=== PATIENT | female | born 1975 | race Caucasian/White ===

== ENCOUNTER 2018-03-17 13:30 | Emergency (ER) | payer BC ==
--- OUTSIDE RECORDS SUMMARY | 2018-03-17 15:26 | XMS REPORT ---
:1975 External Reference #:[id number] Author Organization [facility] Address [address], [address] [place] [address] Phone [phone] Care Team Providers Name Role Phone Thomas Dias DO Primary Care Physician Unavailable Payers Type Date Identification Numbers Payment Provider Subscriber Commercial Policy Number: [id number] [employer] PayID: [id number] [address] [address] [place] [address] Problems Date Description Provider Status Onset: 10/02/2014 Microscopic hematuria Nilda Rao [facility] Active Onset: 10/02/2014 Non-toxic multinodular goiter Nilda Rao [facility] Active Onset: 09/26/2015 Hypothyroidism Nilda Rao [facility] Active Note: primary Onset: 10/02/2014 Vitamin D deficiency Nilda Rao [facility] Active Onset: 04/07/2015 Essential hypertension Nilda Rao [facility] Active Family History Date Family Member(s) Problem(s) Comments Father CAD Mitral valve dx Mother Breast Lumps benign Social History Type Date Description Comments Lives With Family Diet Patient follows no dietary restrictions 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 Proair HFA 11/28 Active Aerosol 108(90Bas 8.500 1-2 466.0 Faye, /2014 e) gm inhalations Kirsten mcg/Act every 4 , M.D. hours as needed Levothyroxine 10/02 Active Tablets 100mcg 90tab 1 by mouth Faye Sodium /2014 s every day Winnie Curtis Desloratadine Active Tablets 5mg 1 tab by Unknown /0000 mouth every day as needed congestion Xyzal Active Tablets 5mg 1 tab by Unknown /0000 mouth every day as needed allergies Amoxicillin/Clavul 06/13 Hx Tablets 875-125mg 14tab 1 tabl by maximo Sutherland Potassium s mouth twice Nilda, - a day DO 09/09 Augmentin 01/13 Hx Tablets 875-125mg 14tab 1 tab by Nhan, /2015 s mouth MD Nunu - q12hrs for 01/29 7 Chloraseptic Max 01/12 Hx Lozenges 15-10mg 30uni 1 tab by Nhan, Sore Throat /2015 ts mouth every MD Nunu - 4 hours as 01/29 needed Mucinex Fast-Max 01/12 Hx Tablets 5-325-200 30tab 1 tab by Nhan Cold & Sinus /2015 mg s mouth twice MD Nunu - a day as 01/29 needed for cough/conge stion Hydrochlorothiazid 04/21 Hx Tablets 25mg 30tab 1 by mouth I10 Nhan e /2014 s every day MD Roge Eddy 06/30 Augmentin 04/17 Hx Tablets 875-125mg 14tab 1 tab by H66.92 Nhan, /2014 s mouth MD Nunu - q12hrs for 09/25 7 Amlodipine 04/02 Hx Tablets 5mg 30tab 1 by mouth I10 Nhan Besylate s every day MD Roge Eddy 04/21 Flovent HFA 01/30 Hx Aerosol 110mcg/Ac inhale two t puffs by - mouth twice 05/27 a day as needed Nabumetone 01/24 Hx Tablets 750mg 30tab take 2 729.5 Arun, s tablets by Thomas Reddy - mouth every DO 01/12 day with /2015 food for ankle/leg discomfort Keflex 01/24 Hx Capsules 500mg 30cap 1 cap (or 729.5 Arun s tab) by Thomas Reddy, - mouth three DO 02/03 times a day /2014 Vitamin D2 01/23 Hx Tablets 2000Unit 2 by mouth Arun every day Thomas Reddy, - DO 01/23 Omeprazole 01/02 Hx Capsules 20mg 100ca 1 by mouth 530[address] metz every day Thomas Reddy, - DO 01/23 Montelukast Sodium 12/16 Hx Tablets 10mg 90tab 1 by mouth Arun s every day Thomas Reddy, - DO 02/03 Cheratussin ac 12/16 Hx Syrup 100-10mg/ 8oz 1-2 Arun 5ML teaspoons Thomas Reddy, - by mouth DO 01/01 every hour as needed cough Azithromycin 12/03 Hx Tablets 250mg 11tab 2 tabs by Arun s mouth today Thomas Reddy, - then one DO 12/16 tab by mouth daily Prednisone 11/28 Hx Tablets 20mg 10tab 2 tabs by 466.0 Faye s mouth every - day with Winnie 12/16 /2014 Keflex 11/23 Hx Capsules 500mg 30cap 1 cap (or Faye s tab) by Kirsten - zi dalton M.D. 12/16 times a day /2014 Desloratadine 11/20 Hx Tablets 5mg 30tab 1 tab by 465.9 Faye s mouth every Kirsten - day as , MLindaDLinda 01/01 needed congestion Ergocalciferol 10/03 Hx Capsules [id number] 4caps take 1 Faye capsule by Kirsten mclean MD 01/01 week /2014 Levothyroxine 00 Hx Tablets 25mcg every day Unknown Sodium /0000 - 11/01 Vitamin D3 0000 Hx Tablets 4000Unit 1 by mouth Unknown /0000 every day - 06/30 Immunizations CPT Code Status Date Vaccine Lot # [id number] Given 02/29/2012 Tdap injection Vital Signs Date Vital Result Comment 06/30/2016 BP Systolic Sitting Right Arm 166 mmHg BP Diastolic Sitting Right Arm 104 mmHg Height 70 inches 5'10" Weight 187.25 lb BMI (Body Mass Index) 26.9 kg/m2 BSA (Body Surface Area) 2.03 m2 01/30/2016 BP Systolic Sitting Right Arm 156 mmHg BP Diastolic Sitting Right Arm 90 mmHg Height 70 inches 5'10" Weight 185.50 lb BMI (Body Mass Index) 26.6 kg/m2 BSA (Body Surface Area) 2.02 m2 01/13/2016 BP Systolic Sitting Right Arm 138 mmHg BP Diastolic Sitting Right Arm 76 mmHg Body Temperature 97.3 F Height 70 inches 5'10" Weight 181.38 lb BMI (Body Mass Index) 26.0 kg/m2 BSA (Body Surface Area) 2.00 m2 04/02/2015 BP Systolic 172 mmHg BP Diastolic 84 mmHg Heart Rate 73 /min Height 70 inches 5'10" Weight 179.00 lb BMI (Body Mass Index) 25.7 kg/m2 BSA (Body Surface Area) 1.99 m2 O2 % BldC Oximetry 99 % Ra 01/24/2015 BP Systolic 142 mmHg BP Diastolic 82 mmHg Body Temperature 97.0 F Height 70 inches 5'10" Weight 178.00 lb BMI (Body Mass Index) 25.5 kg/m2 BSA (Body Surface Area) 1.99 m2 01/02/2015 BP Systolic 152 mmHg BP Diastolic 80 mmHg Body Temperature 97.2 F Height 70 inches 5'10" Weight 182.00 lb BMI (Body Mass Index) 26.1 kg/m2 BSA (Body Surface Area) 2.01 m2 11/28/2014 Heart Rate 71 /min Weight 181.00 lb 11/20/2014 BP Systolic Sitting Left Arm 136 mmHg BP Diastolic Sitting Left Arm 74 mmHg Body Temperature 100.1 F Height 70 inches 5'10" Weight 180.00 lb BMI (Body Mass Index) 25.8 kg/m2 BSA (Body Surface Area) 2.00 m2 10/02/2014 BP Systolic Sitting Left Arm 130 mmHg BP Diastolic Sitting Left Arm 72 mmHg Height 70 inches 5'10" Weight 173.00 lb BMI (Body Mass Index) 24.8 kg/m2 BSA (Body Surface Area) 1.96 m2 01/25/2014 BP Systolic 138 mmHg BP Diastolic 86 mmHg Body Temperature 98.3 F Weight 179.00 lb 06/07/2013 BP Systolic 118 mmHg BP Diastolic 66 mmHg Body Temperature 99.0 F Height 70 inches 5'10" Weight 170.00 lb 03/26/2013 BP Systolic 122 mmHg BP Diastolic 62 mmHg Height 70 inches 5'10" Weight 167.00 lb 08/14/2012 BP Systolic 122 mmHg BP Diastolic 68 mmHg Body Temperature 98.8 F Height 70 inches 5'10" Weight 178.00 lb 03/01/2012 BP Systolic 138 mmHg BP Diastolic 90 mmHg Weight 180.00 lb 03/01/2012 Body Temperature 98.0 F 12/23/2011 BP Systolic 138 mmHg BP Diastolic 82 mmHg Body Temperature 98.7 F Weight 179.00 lb 08/17/2011 BP Systolic 118 mmHg BP Diastolic 72 mmHg Body Temperature 98.5 F Height 70 inches 5'10" Weight 181.00 lb 07/27/2011 BP Systolic 126 mmHg BP Diastolic 74 mmHg Body Temperature 98.4 F Height 70 inches 5'10" Weight 179.00 lb 03/04/2011 BP Systolic 128 mmHg BP Diastolic 88 mmHg Height 70 inches 5'10" Weight 183.00 lb 06/02/2010 Height 69 inches 5'9" Weight 180.00 lb Results Test Date Test Result H/L Range Note Laboratory test finding 01/13/2016 Throat Strep See Note 1 Screen Laboratory test finding 01/03/2015 Vitamin 28.0 ng/mL Low 30.0-100.0 2 D,25-Hydroxy Laboratory test finding 01/03/2015 Thyroid Stim 1.25 uIU/mL 0.36-3.74 Hormone CBC/Manual Differential 12/03/2014 White Blood Count 13.6 K/uL High 3.1- 10.7 Red Blood Count 4.37 M/uL 3.90-5.40 Hemoglobin 13.1 gm/dL 11.6-15.8 Hematocrit 37.1 % 36.0-46.1 Mean Cell Volume 84.9 fl 80.9-99.0 Mean Corpuscular HGB 30.0 pg 25.9-32.7 Mean Corpuscular HGB Conc 35.3 g/dL High 30.8-34.3 Platelet Count 295 K/uL 155-360 Red Cell Distri Width %CV 12.6 % 11.7-14.4 Mean Platelet Volume 10.3 fL 8.9-12.4 Total Cells Counted 100 #CELLS Neutrophils% 67 % 33-73 Lymph% 24 % 17-56 Platelet Estimate NORMAL Monocyte% 8 % 0-10 Eosinophil% 1 % 0-5 RBC Morphology NORMAL LDL Cholesterol Profile 10/02/2014 Cholesterol 168 mg/dL < 200 3 HDL Cholesterol 50 mg/dL > 40 4 LDL-Cholesterol 106 mg/dL < 100 5 Triglycerides 61 mg/dL < 150 6 Laboratory test finding 10/02/2014 Bas% 0.5 % 0.0-1.1 Baso # 0.03 K/uL 0.0-0.1 Eo% 0.8 % 0.0-6.6 Eos # 0.05 K/uL 0.0-0.5 Hematocrit 39.5 % 36.0-46.1 Hemoglobin 13.8 gm/dL 11.6-15.8 Lymph # 1.68 K/uL Low 1.8-7.0 Lymph % 28.1 % 17.0-46.1 Mean Cell Volume 84.0 fl 80.9-99.0 Mean Corpuscular HGB 29.4 pg 25.9-32.7 Mean Corpuscular HGB Conc 34.9 g/dL High 30.8-34.3 Mean Platelet Volume 11.1 fL 8.9-12.4 [place] # 0.71 K/uL 0.3-0.9 [place] % 11.9 % 4.3-13.2 Neut# 3.50 K/uL 1.0-7.0 Neut% 58.7 % 40.4-72.8 Platelet Count 226 K/uL 155-360 Red Blood Count 4.70 M/uL 3.90-5.40 Red Cell Distri Width %CV 12.5 % 11.7-14.4 Red Cell Distri Width SD 37.7 fl 3-47 Vitamin D,25-Hydroxy 19.0 ng/mL Low 30.0-100.0 7 White Blood Count 6.0 K/uL 3.1-10.7 Laboratory test finding 09/13/2014 Thyroid Stim Hormone 1.23 uIU/mL 0.36- 3.74 Laboratory test finding 01/25/2014 Urine Culture See Note 8 Laboratory test finding 08/30/2013 Thyroid Stim Hormone 1.18 uIU/mL 0.49- 4.67 Laboratory test finding 03/27/2013 Free T4 0.97 ng/mL 0.61-1.24 TSH (Thyroid Stimulating Horm) 0.51 miu/mL 0.34-5.60 Lipid Profile (Trig/Chol/HDL) 03/27/2013 Cholesterol 148 mg/dL Less than 200 Cholesterol/HDL Ratio 3.5 Average 1-4.44 HDL Cholesterol 42 mg/dL 40-60 9 LDL Cholesterol 95.2 Less Than 100 10 Triglycerides 54 mg/dL 40-200 Vitamin D, 25 Hydroxy 03/27/2013 25-Hydroxy Vitamin D Total 18 ng/mL 11 25-Hydroxy Vitamin D2 <4.0 ng/mL 25-Hydroxy Vitamin D3 18 ng/mL Laboratory test finding 08/14/2012 Free T4 0.82 ng/mL 0.61-1.24 TSH (Thyroid Stimulating Horm) 1.02 miu/mL 0.34-5.60 LDL Cholesterol Profile 01/07/2012 Cholesterol 159 mg/dL 120-200 HDL Cholesterol 42 mg/dL 29-83 LDL-Cholesterol 94 mg/dL 62-185 Triglycerides 113 mg/dL 16-231 Throat-Beta Strept 12/23/2011 M <See Note> 12 Laboratory test finding 07/27/2011 Free T4 1.08 ng/dL 0.71-1.85 Thyroid Stim Hormone 1.52 uIU/mL 0.49-4.67 Vitamin D,1,25 Dihydroxy 47.8 pg/mL 10.0-75.0 13 CBS W/Automated Diff 07/27/2011 Bas% 0.6 % 0.0-1.1 Baso # 0.03 K/uL 0.0-0.1 Eo% 1.3 % 0.0-6.6 Eos # 0.07 K/uL 0.0-0.5 Hematocrit 36.9 % 36.0-46.1 Hemoglobin 12.9 gm/dL 11.6-15.8 Lymph # 1.61 K/uL 0.8-3.4 Lymph % 29.8 % 17.0-46.1 Mean Cell Volume 83.7 fl 80.9-99.0 Mean Corpuscular HGB 29.3 pg 25.9-32.7 Mean Corpuscular HGB Conc 35.0 g/dL High 30.8-34.3 Mean Platelet Volume 11.2 fL 8.9-12.4 [place] # 0.54 K/uL 0.3-0.9 [place] % 10.0 % 4.3-13.2 Neut# 3.15 K/uL 1.0-7.0 Neut% 58.3 % 40.4-72.8 Platelet Count 252 K/uL 155-360 Red Blood Count 4.41 M/uL 3.90-5.40 Red Cell Distri Width %CV 12.6 % 11.7-14.4 Red Cell Distri Width SD 37.8 fl 3-47 White Blood Count 5.4 K/uL 3.1-10.7 1 NO BETA STREPTOCOCCI ISOLATED 2 Vitamin D deficiency has been defined by the [place] of Medicine and an Endocrine Society practice guideline as a level of serum 25-OH vitamin D less than 20 ng/mL (1,2). The Endocrine Society went on to further define vitamin D insufficiency as a level between 21 and 29 ng/mL (2). 1. IOM ([place] of Medicine). 2010. Dietary reference intakes for calcium and D. Street [place]: The National Academies Press. 2. Loco MF, Rafael NC, Nery SHELTON, et al. Evaluation, treatment, and prevention of vitamin D deficiency: an Endocrine Society clinical practice guideline. JCEM. 2010; 96(7):1911-30. Performed at: RN - [facility] [address] [id number] Occupational Health Physiotherapist: Yeimi Goss MD, Phone: [phone] Reference Guidelines*: Desirable: ........... < 200 mg/dL Borderline High: ..... 200-239 mg/dL High: ................ >=240 mg/dL * The National Cholesterol Education Program (NCEP) 4 Reference Guidelines*: Low HDL: ..... < 40 mg/dL Normal: ..... 40-60 mg/dL Desirable: ... > 60 mg/dL *The National Cholesterol Education Program(NCEP) 5 Reference Guidelines*: Optimal:........... <100 mg/dL Near Optimal....... 100-129 mg/dL Borderline High.... 130-159 mg/dL High............... 160-189 mg/dL Very High.......... >=190 mg/dL * Source: National Cholesterol Education Program ( NCEP) 6 Reference Guidelines*: Normal: ............. < 150 mg/dL Borderline High: .... 150-199 mg/dL High: ............... 200-499 mg/dL Very High: .......... > 500 mg/dL * Source: National Cholesterol Education Program (NCEP) 7 Vitamin D deficiency has been defined by the [place] of [employer] and an Endocrine Society practice guideline as a level of serum 25-OH vitamin D less than 20 ng/mL (1,2). The Endocrine Society went on to further define vitamin D insufficiency as a level between 21 and 29 ng/mL (2). 1. IOM ([place] of [employer]). 2010. Dietary reference intakes for calcium and D. Street [place]: The National Academies Press. 2. Loco MF, Rafael VALDEZ, Nery SHELTON, et al. Evaluation, treatment, and prevention of vitamin D deficiency: an Endocrine Society clinical practice guideline. JCEM. 2010; 96(7):1911-30. Performed at: RN - [facility] [address] [id number] Occupational Health Physiotherapist: Yeimi Goss MD, Phone: [phone] COLONY COUNT ! 80,000-100,000 CFU/ml Organism 1 ! URETHRAL SUDEEP 9 HDL Interpretation: Undesirable: High Risk: Less than 40 mg/dL Desirable: Low Risk: Greater than 60 mg/dL 10 LDL Interpretation: Low Risk Optimal Level: LDL Less than 100 mg/dL Near or Above Optimal: LDL 100-129 mg/dL Borderline High Risk: LDL 130-159 mg/dL High Risk : LDL 160-189 mg/dL Very High Risk: LDL Greater than 189 mg/dL 11 Interpretation: 10-19 (mild to moderate deficiency) -- REFERENCE VALUE -- 25-HYDROXY D TOTAL (D2+D3) Optimum levels in the healthy population are 20-50 , patients with bone disease may benefit from higher levels within this range. Test Performed by: [address] [id number] Vessel Ordinary Seaman: Camacho Yan III, M.D. 12 ------- RUN DATE: 12/25/11 [facility] NMI LIVE PAGE 1 RUN TIME: 09 Specimen Inquiry RUN USER: INTERFACE ----- Name: NINO BONDS Status: REG REF Re12/23/11 Age/Sex: 36/F Unit#: [id number] Location: [facility] : 73 ----- SPEC #: [id number] MICK: 12/23/11 STATUS: COMP REQ #: [id number] RECD: 12/23/11-[address]: Nilda Ornelas SOURCE: THROAT ENTR: 12/23/11-[address]: MELVIN: ORDERED: THROAT-BETA STR ACT WKST: BS #1 ----- Procedure Result Verified Site ----- > THROAT-BETA STREP CULTURE Final 12/25/11-899 ML NEGATIVE FOR GROUP A BETA STREPTOCOCCUS ----- - [facility] State Permit #[id number] [address] [place] [address] ----- DEPARTMENT OF PATHOLOGY, [address] [place] [id number] [facility] Permit #[id number] Carlos Claire M.D. Director Jane Ivey M.D. Spindle Repairer ----- 13 Performed at: [address] [id number] Occupational Health Physiotherapist: Seth Lazar MD, Phone: [phone] Procedures Date CPT Code Description Status 10/30/2014 Mammogram Completed Encounters Type Date Location Provider CPT E/M Dx Office Visit 06/30/2016 8:40a [place] [address] I10 Office Visit 01/30/2016 10:15a Primary Care Office Nilda aRo 60425 L50.2 [facility] Office Visit 01/13/2016 10:40a [place] [address] J06.9 Office Visit 04/02/2015 8:40a [place] [address] I10 Office Visit 01/24/2015 1:45p Primary Care Office iNlda Rao, 94203 729.5 RPAC Office Visit 01/02/2015 9:00a Primary Care Office Nilda Rao 920[address] 493.82 RPAC 530.81 269.1 Office Visit 11/28/2014 10:00a Primary Care Office Nlida Rao, 60682 466.0 RPAC 401.1 Office Visit 11/20/2014 1:30p Family Medicine Nilda Rao [facility] [address]56 465.9 Office Visit 10/02/2014 10:00a Family Medicine Nilda Rao [facility] 40894 272.4 269.1 Plan of Care 06/30/2016 - Nunu Justin MDI10 Essential (primary) hypertensionNew Medication :Hydrochlorothiazide 25 mgComments:-Elevated BP, has hx of pre-eclampsia therefore likely developing chronic HTN now-HCTZ 25mg daily-BPgoal <140/90- Low salt diet-Monitor BP after starting medication, if still above goal of 140/ 90 then will need second agent-Avoid NSAIDs
--- OUTSIDE RECORDS SUMMARY | 2018-03-17 15:26 | XMS REPORT | Continuity of Care Document ---
:1975 External Reference #:[id number] Author Name Juju Bill PA Address [address] [place] [address] Care Team Providers Name Role Phone Carlos Wade M.D. 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 day Hydrochlorothiazide 02/21/ Active Tablets 25mg 30tab 1 by I10 Carlos 2017 s mouth Castellan every os, M.D. day Immunizations CPT Code Status Date Vaccine Lot # [id number] Given 02/26/2012 Tdap Vaccine over 7 yrs old Vital Signs Date Vital Result Comment 02/21/2018 9:27am Weight 183.00 lb BP Systolic 150 mmHg BP Diastolic 80 mmHg Height 69.6 inches 5'9.60" BMI (Body Mass Index) 26.6 kg/m2 Results Description No Information Available Procedures Description No Information Available Encounters Type Date Location Provider Dx Diagnosis Office Visit 02/21/2018 9:30a Main Office Juju Bill PA I10 Essential ( primary) hypertension E03.9 Hypothyroidism, unspecified Plan of Treatment Future Appointment(s):03/30/2018 8:45 am - Juju Bill PA at Main [id number] - Juju Bill [id number] Essential (primary) hypertensionNew Medication: Hydrochlorothiazide 25 mg - 1 by mouth every dayNew Labs:Basic Metabolic Panel, Ordered: 02/21/18CBC Auto Diff, Ordered: 02/21/18Lipid Profile (Trig/Chol/HDL), Ordered: 02/21/18Liver Function Panel, Ordered: 02/21/18TSH (Thyroid Stim Horm) , Ordered: 02/21/18ollow up:shedule cpeE03.9 Hypothyroidism, unspecified
[2018-03-17 15:43] VITALS: BP 164/103
--- NOTE | 2018-03-17 16:01 | UC ---
Throat Pain/Nasal Bob HPI - HPI Summary HPI Summary: Pt presents with c/o nasal congestion, cough, sinus pressure and pain X 7 days - History of Current Complaint Chief Complaint: UCGeneralIllness Stated Complaint: RIGHT EAR,CONGESTION,COUGH Time Seen by Provider: 03/17/18 15:27 Hx Obtained From: Patient Hx Last Menstrual Period: 03/02/18 ?: No Onset/Duration: Gradual Onset, Lasting Days, Still Present, Worse Since - onset Severity: Moderate Pain Intensity: 4 Cough: Nonproductive Associated Signs & Symptoms: Positive: Sinus Discomfort - Epiglottits Risk Factors Epiglottis Risk Factors: Negative - Allergies/Home Medications Allergies/Adverse Reactions: Allergies Allergy/AdvReac Type Severity Reaction Status Date / Time No Known Allergies Allergy Verified 03/17/18 15:32 Home Medications: Home Medications Hydrochlorothiazide TAB* [Hydrodiuril TAB*] 25 mg PO DAILY 03/17/18 [History Confirmed 03/17/18] Levocetirizine Dihydrochloride 5 mg PO BEDTIME 03/17/18 [History Confirmed 03/17] Levothyroxine TAB* [Synthroid 100 MCG TAB*] 100 mcg PO DAILY 03/17/18 [History Confirmed 03/17/18] PMH/Surg Hx/FS Hx/Imm Hx Previously Healthy: Yes Cardiovascular History: Hypertension - Surgical History Surgical History: Yes Surgery Procedure, Year, and Place: left knee x 3. tubal ligation. T&A - Family History Known Family History: Positive: Cardiac Disease - Social History Occupation: Employed Full-time Lives: With Family Alcohol Use: None Substance Use Type: None Smoking Status (MU): Never Smoked Tobacco Have You Smoked in the Last Year: No - Immunization History Vaccination Up to Date: Yes Review of Systems Constitutional: Chills, Fatigue Skin: Negative Eyes: Negative ENT: Sore Throat, Sinus Congestion, Sinus Pain/Tenderness Respiratory: Cough Cardiovascular: Negative Gastrointestinal: Negative Genitourinary: Negative Motor: Negative Neurovascular: Negative Musculoskeletal: Myalgia Neurological: Headache Psychological: Negative Is Patient Immunocompromised?: No All Other Systems Reviewed And Are Negative: Yes Physical Exam Triage Information Reviewed: Yes Appearance: Ill-Appearing Vital Signs: Initial Vital Signs Temp 97.9 F 03/17/18 15:38 Pulse 92 03/17/18 15:38 Resp 16 03/17/18 15:38 BP 164/103 03/17/18 15:38 Pulse Ox 98 03/17/18 15:38 Vital Signs Reviewed: Yes Eye Exam: Normal ENT Exam: Other ENT: Positive: Nasal congestion, Sinus tenderness Dental Exam: Normal Neck exam: Normal Respiratory Exam: Normal Respiratory: Positive: No respiratory distress Cardiovascular Exam: Normal Musculoskeletal Exam: Normal Neurological Exam: Normal Psychological Exam: Normal Skin Exam: Normal Throat Pain/Nasal Course/Dx - Differential Dx/Diagnosis Differential Diagnosis/HQI/PQRI: Influenza, URI Provider Diagnoses: Bronchitis Discharge - Sign-Out/Discharge Documenting (check all that apply): Patient Departure All imaging exams completed and their final reports reviewed: No Studies - Discharge Plan Condition: Stable Disposition: HOME Prescriptions: Azithromycin TAB* [Zithromax TAB (Z-ADRIANE) 250 mg #6 tabs] 2 tab PO .TODAY, THEN 1 DAILY #1 adriane Benzonatate CAP* [Tessalon 100 MG CAP*] 100 mg PO Q8H PRN #30 cap PRN Reason: Cough predniSONE TAB* [Deltasone 20 MG TAB*] 20 mg PO DAILY #4 tab Patient Education Materials: Antitussive/Expectorant (By mouth), Acute Bronchitis (ED) Referrals: Juju Bill PA [Primary Care Provider] - If Needed - Billing Disposition and Condition Condition: STABLE Disposition: Home
== END 2018-03-17 16:09 | disposition home or self-care (01) ==
LOC: UCCORT 13:30
DX: J40 Bronchitis, not specified as acute or chronic (principal); I10 Essential (primary) hypertension
CPT/HCPCS: 99212; G0463